=== PATIENT | male | born 1985 | race Caucasian/White ===

== ENCOUNTER → 2025-02-28 12:11 | Outpatient (REF) | payer BC, SELFPAY ==
[2025-02-28 12:39] LABS: D-Dimer < 0.27 ug/mlFEU (0.00-0.50)
== END ==
LOC: CLAB 12:11
PROVIDERS: ATTENDING PHYSICIAN Nurse Practitioner Family
DX: R07.89 Other chest pain (principal)
CPT/HCPCS: 36415; 85379